=== PATIENT | female | born 1950 | race Caucasian/White ===

== ENCOUNTER 2022-05-29 06:46 | Day surgery (SDC) | payer MEDICARE, OTHER ==
[2022-05-29] MEDS ORDERED: Lactated Ringers 1,000 ML IV SCH (07:00)
[2022-05-29] MEDS ORDERED: Sodium Chloride 0.9% 10 ML Syringe FLUSH PRN (07:00)
[2022-05-29 09:28] VITALS: BP 122/74; PULSE 68
[2022-05-29] MEDS ORDERED: Propofol 200 MG/20 ML SDV IV ONE (12:30)
== END 2022-05-29 09:33 | disposition home or self-care (01) ==
LOC: FB.SDS 06:46
PROVIDERS: ATTEND Surgery
DX: Z12.11 Encounter for screening for malignant neoplasm of colon (principal); D12.6 Benign neoplasm of colon, unspecified; K57.30 Diverticulosis of large intestine without perforation or abscess without bleeding; E78.5 Hyperlipidemia, unspecified; Z80.0 Family history of malignant neoplasm of digestive organs; Z86.010 Personal history of colon polyps; Z79.899 Other long term (current) drug therapy; Z91.030 Bee allergy status
CPT/HCPCS: 00811-QZ; 88305; J2704; J7120